=== PATIENT | female | born 1970 | race Caucasian/White ===

== ENCOUNTER 2018-12-14 15:57 | Observation (INO) | payer MEDICARE, MEDICAID ==
[~2018-12-14] VITALS: Ht 167.6 cm; Wt 86.0 kg
[~2018-12-14 15:57] MED LIST: SYNTHROID100 MC1 PO; THYROID MEDICATION
[2018-12-14 15:59] VITALS: BP 122/79
[2018-12-14] MEDS ORDERED: HALCION0.125 MG PO (16:06)
[2018-12-14] MEDS ORDERED: DEMEROL100 MG PO (16:06)
[2018-12-14] MEDS ORDERED: VISTARIL 25 MG25 M1 PO (16:06)
[2018-12-14] MEDS ORDERED: VALIUM5 MG (16:06)
[2018-12-14 16:41] LABS: HEMATOCRIT 38.9 % (37.0-47.0); MCH 31.6 pg (26.0-34.0); MCHC 33.4 g/dL (28.0-37.0); MCV 94.7 fL (80.0-100.0); MPV 9.6 fl. (7.2-11.1); NUCLEATED RBCS 0 /100WBC; PLATELET COUNT* 179 thou/uL (150-400); RBC 4.11 mil/uL (4.20-5.00); RDW-CV 13.3 % (10.5-14.5); WBC 16.5 thou/uL (4.0-11.0)
[2018-12-14 16:51] LABS: ANION GAP 8 mmol/L (7-16); BUN 21 mg/dL (7-18); CALCIUM 9.6 mg/dL (8.5-10.1); CHLORIDE 106 mmol/L (98-107); CO2 25 mmol/L (21-32); CREATININE 1.5 mg/dL (0.6-1.3); GLUCOSE 118 mg/dL (70-99); POTASSIUM 5.1 mmol/L (3.5-5.1); SODIUM 139 mmol/L (136-145)
[2018-12-14 17:01] LABS: ALBUMIN 3.8 g/dL (3.4-5.0); ALKALINE PHOSPHATASE 101 U/L (46-116); LIPASE 244 U/L (73-393); NT-PRO BRAIN NAT PEPTIDE 482 pg/mL (<300); SGOT 17 U/L (15-37); SGPT 26 U/L (30-65); TOTAL BILIRUBIN 0.4 mg/dL (<0.1-1.0); TOTAL PROTEIN 7.7 g/dL (6.4-8.2); TROPONIN-I LEVEL <0.06 ng/mL (<0.06)
[2018-12-14 17:06] LABS: ABSOLUTE LYMPHOCYTES 1.3 thou/uL (0.8-5.3); ABSOLUTE MONOCYTES 0.5 thou/uL (0.0-1.2); ABSOLUTE NEUTROPHILS 14.7 thou/uL (1.6-8.1); PLATELET ESTIMATE ADEQUATE
[2018-12-14 19:59] VITALS: BP 109/82
[2018-12-14 20:03] LABS: URINE BILIRUBIN NEGATIVE (Negative); URINE BLOOD NEGATIVE (Negative); URINE CLARITY CLEAR; URINE COLOR YELLOW; URINE GLUCOSE-RANDOM NEGATIVE (Negative); URINE KETONES NEGATIVE (Negative); URINE LEUKOCYTES-REFLEX NEGATIVE (Negative); URINE NITRITE-REFLEX NEGATIVE (Negative); URINE PROTEIN NEGATIVE (Negative); URINE SPECIFIC GRAVITY <= 1.005 (1.005-1.030); URINE UROBILINOGEN 0.2 E.U./dl (0.2-1.0)
[2018-12-14 20:15] VITALS: BP 110/65
[2018-12-14] MEDS ORDERED: MULTI VITAMIN1 EACH PO (23:42)
[2018-12-14] MEDS ORDERED: FISH OIL 1,001000 M2 PO (23:44)
--- NOTE | 2018-12-15 07:02 | NUR ---
Admission from ED. 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 She is verbal and able to follow directions and ambulatory. She lives with her adoptive parents. Mother also states that she has autism. She has been quiet and withdrawn since arrival to floor. She had a dental procedure and had aspiration afterwards and she does have infiltrates. She has been recieving IV fluids and IV antinbiotics. This am she is wanting to get up and go home. Her mom said that she will just pull out IV once she starts feeling better. At this time she is cooperative. Skin looks good. She has slept intermittenly.
[2018-12-15 08:00] VITALS: BP 147/90
--- NOTE | 2018-12-15 09:43 | EKG ---
[place] [address] ELECTROCARDIOGRAM REPORT Name: CARMELA URBINA Room: [address] ADM IN M.R.#: [id number] Admission: 12/14/18 Attend Phys: Deya Clements MD Discharge: Date of : 72 Report #: [id number] THIS REPORT FOR: //name// [facility] ED Test Date: 2018-12-14 Test Time: 16:07:42 Pat Name: CARMELAAcosta URBINA Department: Room: [facility] Gender: F Geriatric Nurse: : 1970 Requested By: Froilan Hartley Order Number: [id number] MD: Indra Lizama Measurements Intervals [place] Rate: 114 P: 69 GA: 180 QRS: 31 QRSD: 85 T: 43 QT: 318 QTc: 438 Interpretive Statements Sinus tachycardia Probable left atrial enlargement Abnormal R-wave progression, early transition Probable anterolateral infarct, old No previous ECG available for comparison Electronically Signed On 12-15-2018 9:43:10 CDT by Indra Lizama [email or web address] <ELECTRONICALLY SIGNED> By: Idnra Lizama MD, [facility] 12/15/18 0943 1607 [id number] Indra Lizama MD, [facility] /EPI
[2018-12-15] MEDS ORDERED: AUGMENTIN 875-1 EACH PO (10:04)
[2018-12-15 10:27] VITALS: BP 147/90
[2018-12-15 10:53] LABS: HEMATOCRIT 38.4 % (37.0-47.0); HEMOGLOBIN 12.5 gm/dL (12.0-15.0); MCHC 32.6 g/dL (28.0-37.0); MCV 95.3 fL (80.0-100.0); MPV 9.9 fl. (7.2-11.1); RBC 4.03 mil/uL (4.20-5.00); RDW-CV 13.4 % (10.5-14.5); WBC 19.3 thou/uL (4.0-11.0)
[2018-12-15 11:02] LABS: CALCIUM 9.1 mg/dL (8.5-10.1); CREATININE 1.6 mg/dL (0.6-1.3); MAGNESIUM 1.8 mg/dL (1.8-2.4)
--- NOTE | 2018-12-15 13:28 | NUR ---
PT. DISCHARGED TO HOME PRIOR TO O.T. EVAL. PLEASE ORDER FURTHER O.T. SERVICES IF NEEDED.
--- NOTE | 2018-12-15 14:19 | NUR ---
PT ORDERS RECEIVED AND ACKNOWLEDGED. PT DISCHARGED FROM FACILITY PRIOR TO COMPLETION OF PT EVALUATION.
--- NOTE | 2018-12-18 07:09 | CON ---
[address] [address] CONSULTATION Name: VI URBINAAcosta Tucker Room: [address] [place] Mi#: [id number] Admission: 12/14/18 Attend Phys: Deya Clements MD Discharge: 12/15/18 Date of : 72 Report #: [id number] THIS REPORT FOR: //name// CC: Deya Sepulveda Higginbotham DATE OF SERVICE: 12/15/2018 INFECTIOUS DISEASE CONSULTATION ATTENDING PHYSICIAN: Deya Clements MD REASON FOR EVALUATION: Aspiration pneumonitis. HISTORY OF PRESENT ILLNESS: Chart reviewed, patient examined. This is a 48-year-old woman with some degree of disability, this is on the autism spectrum, it is not clear to me and clearly requires a wire fence erector caregiver, who is noted to have dyspnea onset yesterday afternoon, had been to a dental procedure, removed the tooth, did receive several medications that would be sedating. It was noted she was having difficulty breathing. She was brought to the Emergency Room. Imaging of CT of the chest raised a question of some pneumonitis, suspected aspiration. Urinalysis was otherwise unremarkable. White count was elevated at 16.5. As a result, she was admitted to the hospital and placed on empiric therapy with combination therapy piperacillin/tazobactam, ceftriaxone and metronidazole. At this point, she is quite restless. Family says she is likely to get more agitated. We cannot get additional history from her at this point. ALLERGIES: Per mother, none. CURRENT MEDICATIONS: Include ceftriaxone, Zosyn, ipratropium and albuterol inhaler, acetaminophen, fentanyl, Flagyl, p.r.n. analgesics and antiemetics. PAST MEDICAL HISTORY: Hypothyroidism, mental retardation, spastic palsy. SOCIAL HISTORY: Nonsmoker. No ethanol. No illicit drug use. FAMILY HISTORY: Noncontributory. REVIEW OF SYSTEMS: Unobtainable. PHYSICAL EXAMINATION: GENERAL: She is lying supine in the bed. She does respond to some degree. She appears to be quite suspicious, somewhat chronically ill-appearing, reasonably well nourished. VITAL SIGNS: Temperature max 101.4, more recently 98.6, pulse 107, [place] [id number] CONSULTATION Name: CARMELA URBINA Room: [address]#: [id number] Admission: 12/14/18 Attend Phys: Deya Clements MD Discharge: 12/15/18 Date of : 72 Report #: [id number], blood pressure 110/65. SKIN: Warm, dry. HEENT: Notable for no supplemental oxygen. Extraocular muscles intact. NECK: Supple. LUNGS: Few scattered coarse breath sounds. HEART: Tachycardic, regular. I do not appreciate any murmur. ABDOMEN: Somewhat distended. There is no overt tenderness. There are no peritoneal signs. GENITOURINARY: Deferred. RECTAL: Deferred. LABORATORY DATA: Lactic acid initially was 2.4, repeat was 1.9. D-dimer 0.54. Electrolytes: Sodium 139, potassium 5.1, chloride 106, bicarb is 25, anion gap of 8, BUN and creatinine 21 and 1.5, glucose of 118. LFTs unremarkable. Albumin of 3, total protein of 7.7. Estimated GFR of 37. Chest x-rays serially did not show significant changes. CT did raise question of pneumonitis, small nodular infiltrates throughout the right lung field, mild bibasilar atelectasis, no PE. Urinalysis unremarkable. TSH is 0.029. CBC: White count 16.5, H and H 13.0 and 38.9, platelets of 179. ASSESSMENT AND PLAN: Febrile illness, suspect aspiration pneumonitis, evidently of another source. She seems to have responded fairly well. Mother, who is the caregiver, was quite adamant that situation will become untenable, might concern about possible complications. She thought they would be able to care for at home and have a much better situation and will transition to oral antibiotics. Thank you for allowing us to participate in the care of this patient. <ELECTRONICALLY SIGNED> By: Esteban Rolle MD 12/18/18 0709 [id number] Rolle MD /nt
== END 2018-12-15 11:23 | disposition home or self-care (01) ==
LOC: M.ERS 15:57 → M.ORTHSURG 17:25 → M.TBA-ER 17:25 → M.ORTHSURG 20:07
PROVIDERS: Emergency Medicine; ADMIT Internal Medicine
DX: R50.9 Fever, unspecified (principal); F79 Unspecified intellectual disabilities; Z79.899 Other long term (current) drug therapy; E03.9 Hypothyroidism, unspecified